=== PATIENT | female | born 1980 | race American Indian/Alaskan Native ===

== ENCOUNTER 2016-12-11 23:16 | Emergency (ER) | payer SELFPAY ==
[2016-12-12 00:25] LABS: Hematocrit 37.5 % (30.3-42.9); Hemoglobin 12.2 gm/dl (10.1-14.3); Mean Corpuscular HGB Conc 32 % (30-34); Mean Corpuscular Hemoglobin 28 pg (28-32); Mean Corpuscular Volume 88 fl (79-97); Platelet Count 320 K/mm3 (140-440); Red Blood Count 4.29 M/mm3 (3.65-5.03); Red Cell Distribution Width 14.5 % (13.2-15.2); White Blood Count 9.5 K/mm3 (4.5-11.0)
[2016-12-12 00:41] LABS: Anion Gap 18 mmol/L; Blood Urea Nitrogen 16 mg/dL (7-17); Calcium 9.1 mg/dL (8.4-10.2); Carbon Dioxide 26 mmol/L (22-30); Chloride 100.8 mmol/L (98-107); Glucose 76 mg/dL (65-100); Potassium 4.7 mmol/L (3.6-5.0); Sodium 140 mmol/L (137-145)
--- NOTE | 2016-12-12 06:52 | Emergency Department Report ---
ED Chest Pain HPI - General Chief Complaint: Chest Pain Stated Complaint: CHEST PAIN Time Seen by Provider: 12/12/16 06:21 Source: patient, EMS Mode of arrival: Ambulatory Limitations: No Limitations - History of Present Illness Initial Comments: Patient describes an anterior chest pain which is nonpleuritic and nonexertional. She states it's sore randomly over the past 3-4 days. She's had occasional cough but no dyspnea and no nausea no vomiting no dizziness. She denies any recent travel leg pain or swelling. She states she has never been a smoker. She denies any history of CAD/VTE in the family. She denies any previous cardiovascular workup. MD Complaint: chest pain -: Gradual, days(s) Onset: during rest Pain Location: other (anterior chest) Pain Radiation: none Severity scale (0 -10): 2 Quality: other (soreness) Consistency: intermittent Improves With: nothing Worsens With: movement re: denies: nausea, vomting, diaphoresis, dyspnea, sense of impending doom Other Symptoms: denies: cough, fever, syncope Treatments Prior to Arrival: none - Related Data On Oral Contraceptives: No Previous Rx's Medication Instructions Recorded Last Taken Type Naproxen [Naprosyn] 375 mg PO BID PRN #14 tablet 12/12/16 Unknown Rx Allergies Allergy/AdvReac Type Severity Reaction Status Date / Time No Known Allergies Allergy Verified 12/11/16 23:46 BRONSON score - Bronson Score Age > 65: (0) No Aspirin use within the Past 7 Days: (0) No 3 or more CAD Risk Factors: (0) No 2 or more Angina events in past 24 hrs: (0) No Known CAD with more than 50% Stenosis: (0) No Elevated Cardiac Markers: (0) No ST Deviation Greater than 0.5mm: (0) No BRONSON Score: 0 ED Review of Systems ROS: Stated complaint: CHEST PAIN Other details as noted in HPI Constitutional: denies: chills, fever Eyes: denies: eye pain, eye discharge, vision change ENT: denies: ear pain, throat pain Respiratory: cough (very occasional dry). denies: shortness of breath, wheezing Cardiovascular: chest pain. denies: palpitations Endocrine: no symptoms reported Gastrointestinal: denies: abdominal pain, nausea, diarrhea Genitourinary: denies: urgency, dysuria, discharge Musculoskeletal: denies: back pain, joint swelling, arthralgia Skin: denies: rash, lesions Neurological: denies: headache, weakness, paresthesias Psychiatric: denies: anxiety, depression Hematological/Lymphatic: denies: easy bleeding, easy bruising ED Past Medical Hx - Past Medical History Previous Medical History?: Yes Hx Hypertension: Yes Additional medical history: Migraine - Surgical History Past Surgical History?: No - Social History Smoking Status: Never Smoker Substance Use Type: None - Medications Home Medications: Home Medications Medication Instructions Recorded Confirmed Last Taken Type Naproxen [Naprosyn] 375 mg PO BID PRN #14 tablet 12/12/16 Unknown Rx ED Physical Exam - General Limitations: No Limitations General appearance: alert, in no apparent distress - Head Head exam: Present: atraumatic, normocephalic - Eye Eye exam: Present: normal appearance. Absent: scleral icterus - ENT ENT exam: Present: mucous membranes moist - Neck Neck exam: Present: normal inspection - Respiratory Respiratory exam: Present: normal lung sounds bilaterally, chest wall tenderness (reproducible chest wall tenderness patient states it's the same pain ). Absent: respiratory distress - Cardiovascular Cardiovascular Exam: Present: regular rate, normal rhythm. Absent: systolic murmur, diastolic murmur, rubs, gallop - GI/Abdominal GI/Abdominal exam: Present: soft, normal bowel sounds. Absent: distended, tenderness, guarding, rebound, rigid - Extremities Exam Extremities exam: Present: normal inspection - Back Exam Back exam: Present: normal inspection - Neurological Exam Neurological exam: Present: alert, oriented X3, CN II-XII intact. Absent: motor sensory deficit - Psychiatric Psychiatric exam: Present: normal affect, normal mood - Skin Skin exam: Present: warm, dry, intact, normal color. Absent: rash ED Course Vital Signs 12/11/16 23:20 Temperature 98.2 F Pulse Rate 96 H Respiratory 20 Rate Blood Pressure 132/85 [Right] O2 Sat by Pulse 100 Oximetry - Reevaluation(s) Reevaluation #1: She was given Toradol. I will check a chest x-ray. However she appears to have chest wall tenderness and a negative workup. 12/12/16 06:56 ED Medical Decision Making - Lab Data Result diagrams: 12/11/16 23:54 12/11/16 23:54 Laboratory Results - last 24 hr 12/11/16 12/11/16 12/11/16 23:54 23:54 23:54 WBC 9.5 RBC 4.29 Hgb 12.2 Hct 37.5 MCV 88 MCH 28 MCHC 32 RDW 14.5 Plt Count 320 Lymph % (Auto) Public Address System Installer [place] % (Auto) Public Address System Installer Eos % (Auto) Public Address System Installer Baso % (Auto) Public Address System Installer Lymph # Public Address System Installer [place] # Public Address System Installer Eos # Public Address System Installer Baso # Public Address System Installer Seg Neutrophils % Public Address System Installer Seg Neutrophils # Public Address System Installer Sodium 140 Potassium 4.7 Chloride 100.8 Carbon Dioxide 26 Anion Gap 18 BUN 16 Creatinine 0.8 Estimated GFR > 60 BUN/Creatinine Ratio 20.00 Glucose 76 Calcium 9.1 Troponin T < 0.010 HCG, Qual Negative 12/12/16 12/12/16 02:59 05:18 WBC RBC Hgb Hct MCV MCH MCHC RDW Plt Count Lymph % (Auto) [place] % (Auto) Eos % (Auto) Baso % (Auto) Lymph # [place] # Eos # Baso # Seg Neutrophils % Seg Neutrophils # Sodium Potassium Chloride Carbon Dioxide Anion Gap BUN Creatinine Estimated GFR BUN/Creatinine Ratio Glucose Calcium Troponin T < 0.010 < 0.010 HCG, Qual - EKG Data -: EKG Interpreted by Wy EKG shows normal: sinus rhythm, axis, intervals, QRS complexes, ST-T waves Rate: normal - EKG Data Interpretation: normal EKG (prehospital EKG was normal was well.) Critical care attestation.: If time is entered above; I have spent that time in minutes in the direct care of this critically ill patient, excluding procedure time. ED Disposition Clinical Impression: Chest wall pain Disposition: DISCHARGED TO HOME OR SELFCARE Is pt being admited?: No Does the pt Need Aspirin: No Condition: Stable Instructions: Chest Pain (ED), Costochondritis (ED) Additional Instructions: Return any acute change or problem. Rx as needed for pain. Follow-up per referral or any primary care physician. Prescriptions: Naproxen [Naprosyn] 375 mg PO BID PRN #14 tablet PRN Reason: pain Referrals: PRIMARY CARE, [Primary Care Provider] - 3-[address] [facility] [Provider Group] - 3-5 Days Time of Disposition: 06:58
[2016-12-12] MEDS: TORADOL IM ONE (07:00)
[2016-12-12 07:19] VITALS: BP 128/74
--- NOTE | 2016-12-12 08:44 | XRay Report ---
AP CHEST: History: Chest pain. AP view of the chest demonstrates a normal mediastinal and cardiac contour with clear lungs and normal bony and soft tissue structures. IMPRESSION: Normal AP chest.
== END 2016-12-12 07:16 | disposition home or self-care (01) ==
LOC: ED 23:16
DX: R07.89 Other chest pain (principal); I10 Essential (primary) hypertension; G43.909 Migraine, unspecified, not intractable, without status migrainosus
CPT/HCPCS: 36415; 71010; 80048; 84484; 84703; 85025; 93005; 93010; 96372; 99285; J1885

== ENCOUNTER 2019-02-14 12:59 | Emergency (ER) | payer MEDICAID, OTHER ==
--- NOTE | 2019-02-14 13:39 | Event Note ---
ED Screening Note Date of service: 02/14/19 Time: 13:35 ED Screening Note: This is a 38 y.o. F. that presents to the ER with epigastrium pain and lower abdominal pain radiating to her back for a couple days. Reports pain as sharp and intermittent. Taking NSAIDs with no improvement of symptoms. PMH: HTN LMP: 01/21/19 This initial assessment/diagnostic orders/clinical plan/treatment(s) is/are subject to change based on patients health status, clinical progression and re- assessment by fellow clinical providers in the ED. Further treatment and workup at subsequent clinical providers discretion. Patient/guardian urged not to elope from the ED as their condition may be serious if not clinically assessed and managed. Initial orders include: Labs and CT of abdomen
[2019-02-14 14:15] LABS: Basophils % (Auto) 0.4 % (0.0-1.8); Eosinophils # (Auto) 0.1 K/mm3 (0.0-0.4); Eosinophils % (Auto) 0.7 % (0.0-4.3); Hematocrit 37.6 % (30.3-42.9); Hemoglobin 12.6 gm/dl (10.1-14.3); Lymphocytes # (Auto) 2.2 K/mm3 (1.2-5.4); Mean Corpuscular HGB Conc 34 % (30-34); Mean Corpuscular Volume 85 fl (79-97); Monocytes # (Auto) 0.6 K/mm3 (0.0-0.8); Monocytes % (Auto) 6.4 % (0.0-7.3); Platelet Count 405 K/mm3 (140-440); Red Blood Count 4.41 M/mm3 (3.65-5.03); Red Cell Distribution Width 14.8 % (13.2-15.2)
[2019-02-14 14:21] LABS: Bilirubin,Urine NEG (Negative); Blood,Urine NEG (Negative); Color,Urine Yellow (Yellow); Mucus,Urine FEW /HPF; Protein,Urine <15 mg/dL mg/dL (Negative); Urobilinogen,Urine < 2.0 mg/dL (<2.0); WBC,Urine < 1.0 /HPF (0.0-6.0)
[2019-02-14 14:39] LABS: Alanine Aminotransferase 14 units/L (7-56); Albumin 4.2 g/dL (3.9-5); BUN/Creatinine Ratio 11; Blood Urea Nitrogen 9 mg/dL (7-17); Calcium 9.5 mg/dL (8.4-10.2); Hemolysis Index 7
[2019-02-14 14:45] LABS: HCG Qualitative,Urine Positive (Negative)
--- NOTE | 2019-02-14 17:05 | Ultrasound Report ---
ULTRASOUND ABDOMEN, LIMITED (RIGHT UPPER QUADRANT) INDICATION: with abdominal pain. COMPARISON: None available. FINDINGS: PANCREAS: Visualized portion shows no significant abnormality. LIVER: There is mild to moderate generalized increased echogenicity of the liver parenchyma compared to the right renal cortex without focal lesion. GALLBLADDER: No significant abnormality. BILE DUCTS: No significant abnormality. Common bile duct measures 2.2 mm. FREE FLUID: None. ADDITIONAL FINDINGS: Images of the right kidney are normal. IMPRESSION: 1. Mild to moderate diffuse fatty infiltration of the liver. 2. No evidence of gallstones or other significant abnormality. Signer Name: Braulio Desai MD Signed: 02/14/2019 5:01 PM Workstation Name: [id number]
--- NOTE | 2019-02-14 17:06 | Ultrasound Report ---
Pelvic/OB Ultrasound HISTORY: pelvic pain, . TECHNIQUE: Grayscale and color Doppler imaging performed. COMPARISON: None FINDINGS: The uterus measures 9.5 x 5.4 x 6.8 cm and contains an intrauterine gestational sac with a pole and a yolk sac. [place]-rump length is 5 mm which corresponds with an EGA of 6 weeks and 2 d ays. The estimated delivery date would then be 10/08/2019. There is cardiac activity with a hear t rate of 124 bpm. A small yolk sac is also present. The right ovary measures 2.8 x x 2.9 x 2.0 cm. The left ovary measures 4.4 x 2.9 x 2.8 cm and contain s a complex 2.6 cm structure likely representing a functional cyst. No significant pelvic free fluid. IMPRESSION: 1. Single viable intrauterine gestation as outlined above. 2. Probable functional cyst within the left ovary. Signer Name: Chase Chirinos MD Signed: 02/14/2019 5:01 PM Workstation Name: [id number]
--- NOTE | 2019-02-14 17:15 | Emergency Department Report ---
HPI - General Chief Complaint: Abdominal Pain Time Seen by Provider: 02/14/19 13:35 - HPI HPI: 38 yo AA F presents to the ED with the complaint of a 2 day history of some generalized abdominal discomfort, N/V, mild headache, and back pains. She just had a positive home urine test two days ago that she took after she missed her last period in January. She denies any pmhx. With this she is . No recent travel or sick contacts at home. She denies any vaginal bleeding, discharge, dysuria, fever, chills, CP, SOB. She has not taken anything for her symptoms prior to presentation. ED Past Medical Hx - Past Medical History Hx Hypertension: Yes Additional medical history: Migraine - Social History Smoking Status: Never Smoker Substance Use Type: Prescribed - Medications Home Medications: Home Medications Medication Instructions Recorded Confirmed Last Taken Type Naproxen [Naprosyn] 375 mg PO BID PRN #14 tablet 12/12/16 Unknown Rx Vit-Fe Fumar-FA [ 1 tab PO QDAY #30 tablet 02/14/19 Unknown Rx Vitamin] ED Review of Systems ROS: Stated complaint: BACK/STOMACH PAIN/HEADACHE Other details as noted in HPI Comment: All other systems reviewed and negative Constitutional: denies: chills, fever Eyes: denies: eye pain, vision change ENT: denies: ear pain, throat pain Respiratory: denies: cough, shortness of breath Cardiovascular: denies: chest pain, palpitations Gastrointestinal: abdominal pain, nausea, vomiting Genitourinary: denies: dysuria, discharge Musculoskeletal: back pain. denies: arthralgia Skin: denies: rash, lesions Neurological: headache. denies: numbness, paresthesias Physical Exam - Physical Exam Vital Signs: Vital Signs 02/14/19 13:35 Temperature 98.5 F Pulse Rate 103 H Respiratory 20 Rate Blood Pressure 142/101 O2 Sat by Pulse 99 Oximetry Physical Exam: GENERAL: The patient is well-developed well-nourished. HENT: Normocephalic. Atraumatic. Patient has moist mucous membranes. EYES: Extraocular motions are intact. NECK: Supple. Trachea is midline. CHEST/LUNGS: Clear to auscultation. There is no respiratory distress noted. HEART/CARDIOVASCULAR: Regular. There is no tachycardia. There is no murmur. ABDOMEN: Abdomen is soft. Abdominal pain is not reproducible to palpation. patient has normal bowel sounds. There is no abdominal distention. SKIN: Skin is warm and dry. NEURO: The patient is awake, alert, and oriented. The patient is cooperative. The patient has no focal neurologic deficits. The patient has normal speech. Cranial nerves II through XII grossly intact. MUSCULOSKELETAL: There is no tenderness or deformity. There is no evidence of acute injury. ED Course Vital Signs 02/14/19 13:35 Temperature 98.5 F Pulse Rate 103 H Respiratory 20 Rate Blood Pressure 142/101 O2 Sat by Pulse 99 Oximetry ED Medical Decision Making - Lab Data Result diagrams: 02/14/19 14:05 02/14/19 14:05 - Radiology Data Radiology results: report reviewed Pelvic/OB Ultrasound HISTORY: pelvic pain, . TECHNIQUE: Grayscale and color Doppler imaging performed. COMPARISON: None FINDINGS: The uterus measures 9.5 x 5.4 x 6.8 cm and contains an intrauterine gestational sac with a pole and a yolk sac. [place]-rump length is 5 mm which corresponds with an EGA of 6 weeks and 2 days. The estimated delivery date would then be 10/08/2019. There is cardiac activity with a heart rate of 124 bpm. A small yolk sac is also present. The right ovary measures 2.8 x x 2.9 x 2.0 cm. The left ovary measures 4.4 x 2.9 x 2.8 cm and contains a complex 2.6 cm structure likely representing a functional cyst. No significant pelvic free fluid. IMPRESSION: 1. Single viable intrauterine gestation as outlined above. 2. Probable functional cyst within the left ovary. ULTRASOUND ABDOMEN, LIMITED (RIGHT UPPER QUADRANT) INDICATION: with abdominal pain. COMPARISON: None available. FINDINGS: PANCREAS: Visualized portion shows no significant abnormality. LIVER: There is mild to moderate generalized increased echogenicity of the liver parenchyma compared to the right renal cortex without focal lesion. GALLBLADDER: No significant abnormality. BILE DUCTS: No significant abnormality. Common bile duct measures 2.2 mm. FREE FLUID: None. ADDITIONAL FINDINGS: Images of the right kidney are normal. IMPRESSION: 1. Mild to moderate diffuse fatty infiltration of the liver. 2. No evidence of gallstones or other significant abnormality. - Medical Decision Making Patient presents with complaint of a few days of some abdominal pain, back pain, headache, nausea and vomiting. On examination she does not appear in any acute distress. Patient's labs are mostly unremarkable except for there is confirmation of . /OB ultrasound was done that shows a live intrauterine at about 6 weeks. Abdominal ultrasound shows some mild to moderate diffuse fatty infiltration of the liver but otherwise no other acute process found. Vital signs stable throughout her ED course. No signs of preeclampsia. No focal, motor or sensory deficits and cranial nerves intact. The patient will be started on vitamins and has been given multiple referrals for EVALUATION ENGINEER. She will return to the ER with any worsening of her symptoms or any acute distress. Critical Care Time: No Critical care attestation.: If time is entered above; I have spent that time in minutes in the direct care of this critically ill patient, excluding procedure time. ED Disposition Clinical Impression: Fatty liver disease, nonalcoholic Qualifiers: Weeks of gestation: less than 8 weeks Qualified Code(s): Z3A.01 - Less than 8 weeks gestation of Abdominal pain Qualifiers: Abdominal location: generalized Qualified Code(s): R10.84 - Generalized abdominal pain Disposition: - TO HOME OR SELFCARE Is pt being admited?: No Condition: Stable Instructions: (ED), Non-Alcoholic Fatty Liver Disease (ED), Abdominal Pain (ED) Additional Instructions: Please follow up with an EVALUATION ENGINEER in the next few days. I am starting you on vitamins. You can tylenol every 6 hours, using weight based dosing on the back of the bottle, as needed for fever or discomfort. Otherwise, do not take any medications that are not prescribed or confirmed to use by a physician. Return to the emergency department with any worsening of your symptoms or any acute distress. Prescriptions: Vit-Fe Fumar-FA [ Vitamin] 1 tab PO QDAY #30 tablet Referrals: [facility] [Provider Group] - 3-5 Days [facility] [Provider Group] - 3-5 Days [facility] [Provider Group] - 3-5 Days Forms: Work/School Release Form(ED) Time of Disposition: 17:15
[2019-02-14 17:40] VITALS: BP 138/86
== END 2019-02-14 17:39 | disposition home or self-care (01) ==
LOC: ED 12:59
DX: O26.891 Other specified pregnancy related conditions, first trimester (principal); R10.84 Generalized abdominal pain; O21.8 Other vomiting complicating pregnancy; G43.909 Migraine, unspecified, not intractable, without status migrainosus; O26.611 Liver and biliary tract disorders in pregnancy, first trimester; K76.0 Fatty (change of) liver, not elsewhere classified; O16.1 Unspecified maternal hypertension, first trimester; Z3A.01 Less than 8 weeks gestation of pregnancy
CPT/HCPCS: 36415; 76705; 76801; 76817; 80053; 81001; 81025; 83690; 84702; 85025

== ENCOUNTER 2019-03-26 20:00 | Emergency (ER) | payer MEDICAID ==
--- NOTE | 2019-03-26 20:21 | Emergency Department Report ---
Blank Doc - Documentation Documentation: This is a 38-year-old female that presents with bilateral pelvic pains. Stated is about 12 weeks . Denies any vaginal bleeding. This initial assessment/diagnostic orders/clinical plan/treatment(s) is/are subject to change based on patient's health status, clinical progression and re- assessment by fellow clinical providers in the ED. Further treatment and workup at subsequent clinical providers discretion. Patient/guardians urged not to elope from the ED as their condition may be serious if not clinically assessed and managed. Initial orders include: 1- Patient sent to [facility] for further evaluation and treatment 2- labs 3- UA 4- US OB
[2019-03-26 20:23] VITALS: BP 115/78
[2019-03-26 20:41] LABS: Basophils % (Auto) 0.3 % (0.0-1.8); Eosinophils # (Auto) 0.1 K/mm3 (0.0-0.4); Eosinophils % (Auto) 0.6 % (0.0-4.3); Hematocrit 34.1 % (30.3-42.9); Hemoglobin 11.9 gm/dl (10.1-14.3); Lymphocytes # (Auto) 1.9 K/mm3 (1.2-5.4); Lymphocytes % (Auto) 19.9 % (13.4-35.0); Mean Corpuscular HGB Conc 35 % (30-34); Mean Corpuscular Volume 84 fl (79-97); Monocytes # (Auto) 0.6 K/mm3 (0.0-0.8); Monocytes % (Auto) 6.8 % (0.0-7.3); Platelet Count 402 K/mm3 (140-440); Red Blood Count 4.04 M/mm3 (3.65-5.03); Red Cell Distribution Width 14.8 % (13.2-15.2)
[2019-03-26 21:18] LABS: Bilirubin,Urine NEG (Negative); Blood,Urine NEG (Negative); Color,Urine Yellow (Yellow); Mucus,Urine 2+ /HPF; Protein,Urine <15 mg/dL mg/dL (Negative); Urobilinogen,Urine < 2.0 mg/dL (<2.0)
--- NOTE | 2019-03-26 21:33 | Ultrasound Report ---
Obstetrical ultrasound first trimester INDICATION: Pelvic pain. FINDINGS: There is a single living intrauterine with a [place]-rump length that measures 60.4 mm measuring 12 weeks and 4 days. The heart rate is about 156 bpm. The uterus measures 11.4 x 0.6 x 0.5. Both ovaries are unremarkable. Minimal free pelvic fluid IMPRESSION: Single living intrauterine measuring 12 weeks and 4 days, as above Signer Name: Kapil Mg MD Signed: 03/26/2019 9:28 PM Workstation Name: [id number]
== END 2019-03-26 22:20 | disposition left against medical advice (07) ==
LOC: ED 20:00
DX: O26.891 Other specified pregnancy related conditions, first trimester (principal); R10.2 Pelvic and perineal pain; Z3A.12 12 weeks gestation of pregnancy
CPT/HCPCS: 36415; 76801; 81001; 84702; 85025

== ENCOUNTER 2019-03-27 05:15 | Emergency (ER) | payer MEDICAID ==
[2019-03-27 07:11] LABS: Basophils % (Auto) 0.2 % (0.0-1.8); Eosinophils # (Auto) 0.1 K/mm3 (0.0-0.4); Eosinophils % (Auto) 0.8 % (0.0-4.3); Hematocrit 35.9 % (30.3-42.9); Hemoglobin 11.8 gm/dl (10.1-14.3); Lymphocytes # (Auto) 2.6 K/mm3 (1.2-5.4); Lymphocytes % (Auto) 26.6 % (13.4-35.0); Mean Corpuscular HGB Conc 33 % (30-34); Mean Corpuscular Volume 85 fl (79-97); Monocytes # (Auto) 0.6 K/mm3 (0.0-0.8); Monocytes % (Auto) 6.5 % (0.0-7.3); Platelet Count 398 K/mm3 (140-440); Red Blood Count 4.22 M/mm3 (3.65-5.03); Red Cell Distribution Width 15.4 % (13.2-15.2)
--- NOTE | 2019-03-27 09:10 | Emergency Department Report ---
ED General Adult HPI - General Chief complaint: Abdominal Pain Stated complaint: 12 WEEKS PREG/BAD PAIN ON SIDE Time Seen by Provider: 03/27/19 07:51 Source: patient Mode of arrival: Ambulatory Limitations: No Limitations - History of Present Illness Initial comments: 38-year-old obese -[place] female with history of polycystic ovaries, normal metformin. Also patient takes vitamins extremity department complaining of crampy Sensation to the mid abdominal region, not associated with with any other symptoms. Reports no vaginal bleeding, vaginal discharge, dysuria, increased urinary urgency or adults, constipation the midepigastric area. This is her second visit to the emergency department less than 24 hours. Her initial presentation was significant she presented for the same cyst symptoms, however, did not want to stay for the a lot of weight time, so she eloped. She returns having the same symptoms. No change in symptom character. No no worsening. Back there is a mild improvement of the symptoms, but they still linger. She wanted to have been evaluated. She did not receive any for results before her departure was coming back for reevaluation. -: Gradual Quality: aching Consistency: constant Improves with: none Worsens with: none Associated Symptoms: denies: fever/chills, malaise, nausea/vomiting, shortness of breath, syncope, weakness Treatments Prior to Arrival: none - Related Data Previous Rx's Medication Instructions Recorded Last Taken Type Naproxen [Naprosyn] 375 mg PO BID PRN #14 tablet 12/12/16 Unknown Rx Vit-Fe Fumar-FA [ 1 tab PO QDAY #30 tablet 02/14/19 Unknown Rx Vitamin] Allergies Allergy/AdvReac Type Severity Reaction Status Date / Time No Known Allergies Allergy Verified 12/11/16 23:46 ED Review of Systems ROS: Stated complaint: 12 WEEKS PREG/BAD PAIN ON SIDE Other details as noted in HPI Comment: All other systems reviewed and negative ED Past Medical Hx - Past Medical History Previous Medical History?: Yes Hx Hypertension: Yes Hx Headaches / Migraines: Yes Additional medical history: Migraine - Surgical History Past Surgical History?: No - Social History Smoking Status: Never Smoker Substance Use Type: None - Medications Home Medications: Home Medications Medication Instructions Recorded Confirmed Last Taken Type Naproxen [Naprosyn] 375 mg PO BID PRN #14 tablet 12/12/16 Unknown Rx Vit-Fe Fumar-FA [ 1 tab PO QDAY #30 tablet 02/14/19 Unknown Rx Vitamin] ED Physical Exam - General Limitations: No Limitations General appearance: alert, in no apparent distress - Head Head exam: Present: atraumatic, normocephalic - Eye Eye exam: Present: normal appearance, PERRL - ENT ENT exam: Present: normal exam, mucous membranes moist - Neck Neck exam: Present: normal inspection - Respiratory Respiratory exam: Present: normal lung sounds bilaterally. Absent: respiratory distress - Cardiovascular Cardiovascular Exam: Present: regular rate, normal rhythm. Absent: systolic mur mur, diastolic murmur, rubs, gallop - GI/Abdominal GI/Abdominal exam: Present: soft, normal bowel sounds. Absent: distended, guarding, rebound - Extremities Exam Extremities exam: Present: normal inspection - Back Exam Back exam: Present: normal inspection - Neurological Exam Neurological exam: Present: alert, oriented X3 - Psychiatric Psychiatric exam: Present: normal affect, normal mood - Skin Skin exam: Present: warm, dry, intact, normal color. Absent: rash ED Course Vital Signs 03/27/19 05:27 Temperature 98.8 F Pulse Rate 98 H Respiratory 14 Rate Blood Pressure 111/62 O2 Sat by Pulse 99 Oximetry ED Medical Decision Making - Lab Data Result diagrams: 03/27/19 06:57 - Medical Decision Making 38-year-old obese female, 12 weeks , having abdominal cramping but no vaginal bleeding or discharge. Was in the emergency department last night for the same symptoms, but she did not state that the weight of the ultrasound was obtained and did show a viable urgency at 12 weeks 4 days, heart rate 155 bpm. . There is no DOCUMENT SPECIALIST follow-up for next week. No uropathy noted. States dusted with her vitamins has been having an increased amount of constipation since the onset of this as well. I encouraged her to take stool softeners, vitamins and increase her hydration Critical care attestation.: If time is entered above; I have spent that time in minutes in the direct care of this critically ill patient, excluding procedure time. ED Disposition Clinical Impression: Normal obstetric ultrasound scan, Constipation Disposition: DC-01 TO HOME OR SELFCARE Is pt being admited?: No Does the pt Need Aspirin: No Condition: Stable Instructions: Abdominal Pain (ED) Additional Instructions: Your ultrasound showed a 12 week 4 day 155 bpm and a copy was provided for you. Please follow DOCUMENT SPECIALIST for further evaluation of the intestinal cramping and be sure to take a stool sweats, or with the , vitamins. 2. Resolving constipation Referrals: BEVERLY ALVA MD [Primary Care Provider] - 3-5 Days
[2019-03-27 09:23] VITALS: BP 105/65
== END 2019-03-27 09:24 | disposition home or self-care (01) ==
LOC: ED 05:15
DX: O26.891 Other specified pregnancy related conditions, first trimester (principal); K59.00 Constipation, unspecified; O16.1 Unspecified maternal hypertension, first trimester; G43.909 Migraine, unspecified, not intractable, without status migrainosus; Z3A.12 12 weeks gestation of pregnancy; Z79.899 Other long term (current) drug therapy
CPT/HCPCS: 36415; 84702; 85025; 86900; 86901; 99283

== ENCOUNTER 2019-05-15 04:47 | Emergency (ER) | payer SELFPAY ==
[2019-05-15 04:54] VITALS: BP 123/57
[2019-05-15] MEDS ORDERED: METOCLOPRAMIDE 10 MG/2 ML INJ IV ONE (05:23)
[2019-05-15] MEDS ORDERED: BUTALB/ACETAMINOPHEN/CAFFEINE TAB PO ONE (05:26)
[2019-05-15] MEDS ORDERED: diphenhydrAMINE 50 MG/ML VIAL IV ONE (05:26)
--- NOTE | 2019-05-15 06:18 | Emergency Department Report ---
ED Headache HPI - General Chief Complaint: Headache Stated Complaint: HEADACHE Source: patient Exam Limitations: no limitations - History of Present Illness Initial Comments: Patient is a A0 38-year-old -[place] female who is approximately 20 weeks gestation and who has a past medical history of chronic migraine headaches and who presents to the ED with complaint of acute onset persistent severe frontal headache with intermittent nausea for the last 1 week. Patient states that she has been taking [id number] Tylenol as needed for pain with no relief. Patient states that in the last 8 hours she has not been able to sleep because of frontal throbbing headache. Patient denies neck pain, change in vision, syncope, shortness of breath, nasal and sinus congestion, sore throat, dizziness, vomiting, fever, chills, cough, abdominal pain or vaginal bleeding. Timing/Duration: 1 week, constant, waxing and waning Quality: severe, achy, sharp Head Injury Location: frontal Recent Head Trauma: no recent headache/trauma Associated Symptoms: denies symptoms, facial pain, nausea/vomiting. denies: confusion, fatigue, fever/chills, flushing, loss of consciousness, nasal congestion, nasal drainage, numbness in legs/feet, seizures, sinus infection, stiff neck, vision changes, weakness Allergies/Adverse Reactions: Allergies No Known Allergies Allergy (Verified 12/11/16 23:46) Home Medications: Ambulatory Orders Naproxen [Naprosyn] 375 mg PO BID PRN #14 tablet 12/12/16 Vit-Fe Fumar-FA [ Vitamin] 1 tab PO QDAY #30 tablet 02/14/19 Nitrofurantoin Schoolcraft/M-Cryst [Macrobid CAP] 100 mg PO Q12HR #14 capsule 05/03/19 Amoxicillin [Trimox CAP] 500 mg PO Q8H #30 capsule 05/15/19 Butalb/Acetamin/Caff 50-325-40 [Fioricet 50-325-40] 1 tab PO Q6HR PRN #12 tab 05/15/19 Promethazine [Phenergan] 25 mg PO Q6HR PRN #24 tab 05/15/19 ED Review of Systems ROS: Stated complaint: HEADACHE Other details as noted in HPI Constitutional: denies: chills, fever Eyes: denies: eye pain, eye discharge, vision change ENT: other (frontal sinus pressure and pain). denies: ear pain, throat pain Respiratory: denies: cough, shortness of breath, wheezing Cardiovascular: denies: chest pain, palpitations Endocrine: no symptoms reported Gastrointestinal: nausea. denies: abdominal pain, diarrhea Genitourinary: denies: urgency, dysuria, discharge Musculoskeletal: denies: back pain, joint swelling, arthralgia Skin: denies: rash, lesions Neurological: headache. denies: weakness, paresthesias Psychiatric: denies: anxiety, depression Hematological/Lymphatic: denies: easy bleeding, easy bruising ED Past Medical Hx - Past Medical History Previous Medical History?: No Hx Hypertension: Yes Hx Headaches / Migraines: Yes Additional medical history: Migraine - Surgical History Past Surgical History?: No - Social History Smoking Status: Never Smoker Substance Use Type: None - Medications Home Medications: Home Medications Medication Instructions Recorded Confirmed Last Taken Type Naproxen [Naprosyn] 375 mg PO BID PRN #14 tablet 12/12/16 Unknown Rx Vit-Fe Fumar-FA [ 1 tab PO QDAY #30 tablet 02/14/19 Unknown Rx Vitamin] Nitrofurantoin Schoolcraft/M-Cryst 100 mg PO Q12HR #14 capsule 05/03/19 Unknown Rx [Macrobid CAP] Amoxicillin [Trimox CAP] 500 mg PO Q8H #30 capsule 05/15/19 Unknown Rx Butalb/Acetamin/Caff 50-325-40 1 tab PO Q6HR PRN #12 tab 05/15/19 Unknown Rx [Fioricet 50-325-40] Promethazine [Phenergan] 25 mg PO Q6HR PRN #24 tab 05/15/19 Unknown Rx ED Physical Exam - General Limitations: No Limitations General appearance: alert, in no apparent distress - Head Head exam: Present: atraumatic, normocephalic, normal inspection - Eye Eye exam: Present: normal appearance, PERRL, EOMI. Absent: scleral icterus, conjunctival injection, nystagmus Pupils: Present: normal accommodation - ENT ENT exam: Present: normal orophraynx, mucous membranes moist, TM's normal bilaterally, normal external ear exam, other (palpable severe frontal sinus tenderness) - Neck Neck exam: Present: normal inspection, full ROM. Absent: tenderness, lymphadenopathy - Respiratory Respiratory exam: Present: normal lung sounds bilaterally. Absent: respiratory distress, wheezes, rales, stridor, chest wall tenderness, accessory muscle use, decreased breath sounds - Cardiovascular Cardiovascular Exam: Present: normal rhythm, tachycardia, normal heart sounds. Absent: systolic murmur, diastolic murmur, rubs, gallop - GI/Abdominal GI/Abdominal exam: Present: soft, normal bowel sounds. Absent: tenderness, guarding, rebound - Rectal Rectal exam: Present: deferred - Extremities Exam Extremities exam: Present: normal inspection, full ROM, normal capillary refill - Back Exam Back exam: Present: normal inspection, full ROM. Absent: tenderness, CVA tenderness (R), CVA tenderness (L), muscle spasm, paraspinal tenderness - Neurological Exam Neurological exam: Present: alert, oriented X3, CN II-XII intact, normal gait, reflexes normal - Psychiatric Psychiatric exam: Present: normal affect, normal mood - Skin Skin exam: Present: warm, dry, intact, normal color. Absent: rash ED Course Vital Signs 05/15/19 04:49 Temperature 98.5 F Pulse Rate 102 H Respiratory 18 Rate Blood Pressure 123/57 O2 Sat by Pulse 100 Oximetry - Reevaluation(s) Reevaluation #1: 05/15/19 06:16 This is a 38-year-old -[place] female who is approximately 20 weeks gestation with a history of chronic migraine headaches and presented to the ED with worsening frontal headache for one week. In the ED, patient is alert and oriented 3 and is not in distress but slightly tachycardic in triage. Patient was treated in the ED with medications for migraine headaches and on reevaluation, patient's headache resolved with medications. Patient was discharged home on medications and advised to follow-up with her primary care physician in 7-10 days for reevaluation. Patient was advised to return to the ED immediately if symptoms get worse. ED Medical Decision Making - Medical Decision Making This is a 38-year-old -[place] female who is approximately 20 weeks gestation with a history of chronic migraine headaches and presented to the ED with worsening frontal headache for one week. In the ED, patient is alert and oriented 3 and is not in distress but slightly tachycardic in triage. Patient was treated in the ED with medications for migraine headaches and on reevaluation, patient's headache resolved with medications. Patient was discharged home on medications and advised to follow-up with her primary care physician in 7-10 days for reevaluation. Patient was advised to return to the ED immediately if symptoms get worse. - Differential Diagnosis sinus headache, migraine headache, frontal sinusitis, acute URI Critical care attestation.: If time is entered above; I have spent that time in minutes in the direct care of this critically ill patient, excluding procedure time. ED Disposition Clinical Impression: Sinus headache Acute frontal sinusitis Qualifiers: Recurrence: non-recurrent Qualified Code(s): J01.10 - Acute frontal sinusitis, unspecified Disposition: TO HOME OR SELFCARE Is pt being admited?: No Does the pt Need Aspirin: No Condition: Stable Instructions: Acute Bacterial Rhinosinusitis (ED), Acute Headache (ED) Additional Instructions: Take medications with food, drink plenty of fluids and follow-up with your primary care physician in 5-7 days for reevaluation. Return to the ED immediately if symptoms get worse. Prescriptions: Butalb/Acetamin/Caff 50-325-40 [Fioricet 50-325-40] 1 tab PO Q6HR PRN #12 tab PRN Reason: Headache Promethazine [Phenergan] 25 mg PO Q6HR PRN #24 tab PRN Reason: Nausea Amoxicillin [Trimox CAP] 500 mg PO Q8H #30 capsule Referrals: PRIMARY CARE, [Primary Care Provider] - 3-5 Days Time of Disposition: 06:19 Print Language: TURKMEN
== END 2019-05-15 06:39 | disposition home or self-care (01) ==
LOC: ED 04:47
DX: O26.892 Other specified pregnancy related conditions, second trimester (principal); J01.10 Acute frontal sinusitis, unspecified; O16.2 Unspecified maternal hypertension, second trimester; G43.909 Migraine, unspecified, not intractable, without status migrainosus; Z3A.20 20 weeks gestation of pregnancy
CPT/HCPCS: 96374; 96375; 99283; J1200; J2765